=== PATIENT | male | born 1990 | race Caucasian/White ===

== ENCOUNTER 2016-12-26 02:09 | Emergency (ER) | payer SELFPAY ==
[~2016-12-26] VITALS: Ht 177.8 cm; Wt 66.2 kg
[2016-12-26 02:44] LABS: BILIRUBIN,URINE SMALL (NEG); GLUCOSE,URINE NEGATIVE (NEG); NITRITE,URINE NEGATIVE (NEG); PH,URINE 5.5; PROTEIN,URINE NEGATIVE (NEG-TRACE)
[2016-12-26 02:50] LABS: BARBITURATES NEG (NEG); BENZODIAZEPINES NEG (NEG); CANNABINOIDS NEG (NEG); COCAINE NEG (NEG); METHADONE NEG (NEG); OPIATES NEG (NEG); PHENCYCLIDINE NEG (NEG)
[2016-12-26 03:07] LABS: ETHANOL, URINE NEG (NEG)
[2016-12-26 03:22] LABS: CALCIUM 9.6 mg/dL (8.5-10.1); CREATININE 1.4 mg/dL (0.7-1.3); GFR 61.3; POTASSIUM 3.6 mmol/L (3.5-5.1)
[2016-12-26 03:23] LABS: BASO % 1 % (0-3); EOS % 4 % (0-3); HEMATOCRIT 46.7 % (39.0-53.0); HEMOGLOBIN 15.7 g/dL (13.0-17.5); LYMPH # 2.3 x10^3/uL (1.0-4.8); LYMPH % 34 % (24-48); MEAN CORPUSCULAR HEMOGLOBIN 31 pg (25-35); MEAN CORPUSCULAR HGB CONC 34 g/dL (31-37); MEAN CORPUSCULAR VOLUME 93 fL (79-100); MONO % 9 % (0-9); NEUT % 53 % (31-73); PLATELET COUNT 229 x10^3/uL (140-400); RED BLOOD COUNT 5.02 x10^6/uL (4.30-5.70); RED CELL DISTRIBUTION WIDTH 13.6 % (11.5-14.5); WHITE BLOOD COUNT 6.8 x10^3/uL (4.0-11.0)
--- NOTE | 2016-12-26 03:37 | ED.ADGEN ---
Past Medical History Past Medical History: Anxiety Past Surgical History: Other Additional Past Surgical Histo: METAL PLATE IN RIGHT FOREARM, EYE SX Alcohol Use: None Drug Use: None Adult General Chief Complaint Chief Complaint: PSYCH EVALUATION HPI HPI Patient is a 26 year old man, history of anxiety, history of suicidal ideation , who presents to the emergency department with his parents with report of suicidal ideation. Per patient report, he is experiencing a lot of stress, and is thinking of hanging himself. States he is still feeling depressed, but is not actively suicidal at this moment. He denies any self injures behaviors or ingestions prior to arrival in the ED. Has not previously been hospitalized for suicidal ideation, although he is considered hanging himself previously. No auditory or visual hallucinations. No drugs or alcohol. Patient has history of multiple head contusions, with a 15 year history of skateboarding. Review of Systems Review of Systems Constitutional: Denies fever or chills. [] Eyes: Denies change in visual acuity. [] HENT: Denies nasal congestion or sore throat. [] Respiratory: Denies cough or shortness of breath. [] Cardiovascular: Denies chest pain or edema. [] GI: Denies abdominal pain, nausea, vomiting, bloody stools or diarrhea. [] : Denies dysuria. [] Musculoskeletal: Denies back pain or joint pain. [] Integument: Denies rash. [] Neurologic: Denies headache, focal weakness or sensory changes. [] Endocrine: Denies polyuria or polydipsia. [] Lymphatic: Denies swollen glands. [] Psychiatric: Depression and anxiety with suicidal ideation. Current Medications Current Medications Current Medications Medications (Trade) Dose Ordered Sig/Paul Start Time Stop Time Status Last Admin Dose Admin Diphenhydramine HCl (Benadryl) 25 mg 1X ONCE 12/26/16 05:15 12/26/16 05:16 DC 12/26/16 05:12 25 MG Naproxen (Naprosyn) 250 mg 1X ONCE 12/26/16 05:00 12/26/16 05:00 DC Prochlorperazine Edisylate (Compazine) 10 mg 1X ONCE 12/26/16 05:15 12/26/16 05:16 DC 12/26/16 05:13 10 MG Sodium Chloride (Iv Sodium Chloride 0.9% 1000ml Bag) 1,000 ml @ 1,000 mls/hr 1X ONCE 12/26/16 04:30 12/26/16 05:29 DC 12/26/16 04:30 1,000 MLS/HR Tramadol HCl (Ultram) 50 mg 1X ONCE 12/26/16 05:15 12/26/16 05:16 DC 12/26/16 05:13 50 MG Allergies Allergies Allergies Coded Allergies Type Severity Reaction Last Updated Verified No Known Drug Allergies 12/26/16 No Physical Exam Physical Exam Constitutional: Well developed, well nourished, no acute distress, non-toxic appearance. [] HENT: Normocephalic, atraumatic, bilateral external ears normal, oropharynx moist, no oral exudates, nose normal. [] Eyes: PERRLA, EOMI, conjunctiva normal, no discharge. [] Neck: Normal range of motion, no tenderness, supple, no stridor. [] Cardiovascular:Heart rate regular rhythm, no murmur , S1, S2, rubs or gallops. [ ] Lungs & Thorax: Bilateral breath sounds clear to auscultation, no wheezing, rhonchi, rales. No chest or crepitus or tenderness. [] Abdomen: Bowel sounds normal, soft, no tenderness, no masses, no pulsatile masses. [] Skin: Warm, dry, no erythema, no rash. [] Back: No tenderness, no CVA tenderness. [] Extremities: No tenderness, no cyanosis, no clubbing, ROM intact, no edema. [] Neurologic: Alert and oriented X 3, normal motor function, normal sensory function, no focal deficits noted. [] Psychologic: Affect normal, judgement normal, mood normal. [] Current Patient Data Vital Signs Vital Signs Date Time Temp Pulse Resp B/P Pulse Ox O2 Delivery O2 Flow Rate FiO2 12/26/16 05:36 51 103/55 12/26/16 05:06 98 Room Air 12/26/16 02:25 97.9 16 97.9 Lab Values Laboratory Tests Test 12/26/16 02:30 12/26/16 02:58 Urine Collection Type Unknown Urine Color Alondra Urine Clarity Clear Urine pH 5.5 Urine Specific [place] >=1.030 Urine Protein Negativemg/dL (NEG-TRACE) Urine Glucose (UA) Negativemg/dL (NEG) Urine Ketones (Stick) 15mg/dL (NEG) Urine Blood Negative (NEG) Urine Nitrite Negative (NEG) Urine Bilirubin Small (NEG) Urine Urobilinogen Dipstick 1.0mg/dL (0.2 mg/dL) Urine Leukocyte Esterase Negative (NEG) Urine RBC 0/HPF (0-2) Urine WBC 1-4/HPF (0-4) Urine Squamous Epithelial Cells Few/LPF Urine Bacteria 0/HPF (0-FEW) Urine Mucus Mod/LPF Urine Opiates Screen Neg (NEG) Urine Methadone Screen Neg (NEG) Urine Barbiturates Neg (NEG) Urine Phencyclidine Screen Neg (NEG) Urine Amphetamine/Methamphetamine Neg (NEG) Urine Benzodiazepines Screen Neg (NEG) Urine Cocaine Screen Neg (NEG) Urine Cannabinoids Screen Neg (NEG) Urine Ethyl Alcohol Neg (NEG) White Blood Count 6.8x10^3/uL (4.0-11.0) Red Blood Count 5.02x10^6/uL (4.30-5.70) Hemoglobin 15.7g/dL (13.0-17.5) Hematocrit 46.7% (39.0-53.0) Mean Corpuscular Volume 93fL (79-100) Mean Corpuscular Hemoglobin 31pg (25-35) Mean Corpuscular Hemoglobin Concent 34g/dL (31-37) Red Cell Distribution Width 13.6% (11.5-14.5) Platelet Count 229x10^3/uL (140-400) Neutrophils (%) (Auto) 53% (31-73) Lymphocytes (%) (Auto) 34% (24-48) Monocytes (%) (Auto) 9% (0-9) Eosinophils (%) (Auto) 4% (0-3) H Basophils (%) (Auto) 1% (0-3) Neutrophils # (Auto) 3.6x10^3uL (1.8-7.7) Lymphocytes # (Auto) 2.3x10^3/uL (1.0-4.8) Monocytes # (Auto) 0.6x10^3/uL (0.0-1.1) Eosinophils # (Auto) 0.3x10^3/uL (0.0-0.7) Basophils # (Auto) 0.0x10^3/uL (0.0-0.2) Sodium Level 145mmol/L (136-145) Potassium Level 3.6mmol/L (3.5-5.1) Chloride Level 105mmol/L (98-107) Carbon Dioxide Level 29mmol/L (21-32) Anion Gap 11 (6-14) Blood Urea Nitrogen 17mg/dL (8-26) Creatinine 1.4mg/dL (0.7-1.3) H Estimated GFR (Cockcroft-Gault) 61.3 Glucose Level 104mg/dL (70-99) H Calcium Level 9.6mg/dL (8.5-10.1) Salicylates Level < 2.8mg/dL (2.8-20.0) L Salicylate Last Dose Date Unknown Salicylate Last Dose Time Unknown Acetaminophen Level < 2mcg/ml (10-30) L Acetaminophen Last Dose Date Unknown Acetaminophen Last Dose Time Unknown Laboratory Tests 12/26/16 02:58 Laboratory Tests 12/26/16 02:58 EKG EKG ECG: Rhythm strip: Sinus rhythm, heart rate 73 bpm, no ectopy. As interpreted by me. [] Radiology/Procedures Radiology/Procedures Not indicated. [] Course & Med Decision Making Course & Med Decision Making Pertinent Labs and Imaging studies reviewed. (See chart for details) Medical examination is unremarkable aside from mild dehydration with trace ketones, and a creatinine of 1.4. Patient received IV fluids in the ED. Patient also is complaining of headache at this time, consistent with his previous episodes of migraine headache. Patient received tramadol, IV fluids as stated, Compazine and Benadryl in the ED. On reevaluation his headache is resolved and he is feeling much better. Patient was evaluated by the psychiatric assessment team in the emergency department. Patient is denying any active suicidal ideation at this time, states he previously was a by himself, but not presently. He states he does still feel depressed. After evaluation, both medical and psychiatric, patient is medically cleared, plan to discharge patient with parents with a safety contract, they will proceed directly to [facility] for the patient to have a psychiatric evaluation and treatment as needed performed. Patient and family at bedside voiced understanding and agreement. Patient discharged with his parents, with plan as stated above. Dragon Disclaimer Dragon Disclaimer This electronic medical record was generated, in whole or in part, using a voice recognition dictation system. Departure Impression: Primary Impression: Depression Additional Impression: Suicidal ideation Disposition: HOME, SELF-CARE Condition: IMPROVED Problem Qualifiers LAKESHIA MENJIVAR DO Dec 26, 2016 03:37
[2016-12-26 03:49] LABS: BACTERIA,URINE 0 /HPF (0-FEW); RBC,URINE 0 /HPF (0-2); SQUAMOUS EPITHELIAL CELL,UR FEW /LPF
[2016-12-26] MEDS ORDERED: IV NORMAL SALINE 1000ML BAG 1,000 ML IV ONE (04:30)
[2016-12-26] MEDS ORDERED: NAPROXEN 250 MG TABLET PO ONE (05:00)
[2016-12-26] MEDS ORDERED: DIPHENHYDRAMINE 50 MG/ML VIAL IVP ONE (05:15)
[2016-12-26] MEDS ORDERED: TRAMADOL 50 MG TABLET. PO ONE (05:15)
[2016-12-26] MEDS ORDERED: PROCHLORPERAZINE 10 MG/2 ML VIAL. IV ONE (05:15)
[2016-12-26 05:36] VITALS: BP 103/55
== END 2016-12-26 06:00 | disposition home or self-care (01) ==
LOC: ER 02:09
DX: R45.851 Suicidal ideations (principal); F32.9 Major depressive disorder, single episode, unspecified
CPT/HCPCS: 36415; 80048; 81001; 85027; 96361; 96374; 96375; 99284; G0481; G6038; J0780; J1200; J7030; 80196

== ENCOUNTER 2017-11-20 18:14 | Emergency (ER) | payer SELFPAY, OTHER ==
[2017-11-20] MEDS: HYDROcodon/APAP 7.5/325MG ORAL 15 ML SOLUTION PO ×2 (19:16)
== END 2017-11-20 19:59 | disposition home or self-care (01) ==
LOC: ER 18:14
DX: S93.401A Sprain of unspecified ligament of right ankle, initial encounter (principal); J45.909 Unspecified asthma, uncomplicated; X58.XXXA Exposure to other specified factors, initial encounter; Y93.51 Activity, roller skating (inline) and skateboarding; Y92.89 Other specified places as the place of occurrence of the external cause; Y99.8 Other external cause status
CPT/HCPCS: 29515; 73610; 99284-25

== ENCOUNTER 2018-03-28 19:58 | Emergency (ER) | payer SELFPAY | END 2018-03-28 21:55 | disposition home or self-care (01) | LOC: ER 19:58 | DX: T63.301A Toxic effect of unspecified spider venom, accidental (unintentional), initial encounter (principal); J45.909 Unspecified asthma, uncomplicated; Y92.89 Other specified places as the place of occurrence of the external cause | CPT/HCPCS: 99281 ==

== ENCOUNTER 2019-09-08 18:56 | Emergency (ER) | payer SELFPAY ==
[~2019-09-08] VITALS: Ht 180.3 cm; Wt 70.3 kg
[~2019-09-08 18:56] MED LIST: ONDA4TAB10 SL
[2019-09-08] MEDS ORDERED: IV NORMAL SALINE 1000ML BAG 1,000 ML IV SCH (19:18)
--- NOTE | 2019-09-08 19:22 | PHYS DOC ---
Past Medical History Past Medical History: No Pertinent History, Asthma Past Surgical History: Other Additional Past Surgical Histo: titanium plate in right FA, bilat eye surgery "lazy eye" Alcohol Use: None Drug Use: None Adult General Chief Complaint Chief Complaint: NAUSEA/VOMITING/DIARRHA HPI HPI 29-year-old male presents to the emergency Department complaints of diarrhea, vomiting, abdominal discomfort, lightheadedness. Patient states this started around 6:30 this morning he states he's had approximately 4 or more episodes. Given the flank pain abdominal discomfort presented ER for further evaluation. Patient is afebrile 99 7, blood pressure 102/65, heart rate 96. Nothing makes symptoms worse nothing makes his symptoms better. Patient has taken no over the counter medications Review of Systems Review of Systems Constitutional: chills Eyes: Denies change in visual acuity, redness, or eye pain [] HENT: Denies nasal congestion or sore throat [] Respiratory: Denies cough or shortness of breath [] Cardiovascular: No additional information not addressed in HPI [] GI: + abdominal pain, nausea, vomiting, diarrhea [] : Denies dysuria or hematuria [] Musculoskeletal: Denies back pain or joint pain [] Integument: Denies rash or skin lesions [] Neurologic: Denies headache, focal weakness or sensory changes [] All other systems were reviewed and found to be within normal limits, except as documented in this note. Current Medications Current Medications Current Medications Medications (Trade) Dose Ordered Sig/Paul Start Time Stop Time Status Last Admin Dose Admin Dicyclomine HCl (Bentyl) 10 mg 1X ONCE 09/08/19 19:30 09/08/19 19:31 DC 09/08/19 19:44 10 MG Ondansetron HCl (Zofran) 4 mg 1X ONCE 09/08/19 19:30 09/08/19 19:31 DC 09/08/19 19:44 4 MG Sodium Chloride 1,000 ml @ 1,000 mls/hr Q1H 09/08/19 19:18 09/08/19 20:17 DC 09/08/19 19:42 1,000 MLS/HR Allergies Allergies Allergies Coded Allergies Type Severity Reaction Last Updated Verified ketorolac Adverse Reaction Mild Anxiety 09/08/19 Yes Physical Exam Physical Exam Constitutional: Well developed, well nourished, no acute distress, non-toxic appearance. [] HENT: Normocephalic, atraumatic, bilateral external ears normal, oropharynx m oist, no oral exudates, nose normal. [] Eyes: PERRLA, EOMI, conjunctiva normal, no discharge. [] Cardiovascular:Heart rate regular rhythm, no murmur [] Lungs & Thorax: Bilateral breath sounds clear to auscultation [] Abdomen: Bowel sounds normal, soft, no tenderness, no masses, no pulsatile masses. [] Skin: Warm, dry, no erythema, no rash. [] Back: No tenderness, no CVA tenderness. [] Extremities: No tenderness, no edema. [] Neurologic: Alert and oriented X 3, no focal deficits noted. [] Psychologic: Affect normal, judgement normal, mood normal. [] Current Patient Data Vital Signs Vital Signs Date Time Temp Pulse Resp B/P (MAP) Pulse Ox O2 Delivery O2 Flow Rate FiO2 09/08/19 19:00 99.7 92 20 102/65 (77) Room Air 99.7 Lab Values Laboratory Tests Test 09/08/19 19:40 09/08/19 20:08 White Blood Count 8.7 x10^3/uL (4.0-11.0) Red Blood Count 5.18 x10^6/uL (4.30-5.70) Hemoglobin 16.2 g/dL (13.0-17.5) Hematocrit 47.6 % (39.0-53.0) Mean Corpuscular Volume 92 fL (79-100) Mean Corpuscular Hemoglobin 31 pg (25-35) Mean Corpuscular Hemoglobin Concent 34 g/dL (31-37) Red Cell Distribution Width 13.2 % (11.5-14.5) Platelet Count 247 x10^3/uL (140-400) Neutrophils (%) (Auto) 88 % (31-73) H Lymphocytes (%) (Auto) 5 % (24-48) L Monocytes (%) (Auto) 6 % (0-9) Eosinophils (%) (Auto) 2 % (0-3) Basophils (%) (Auto) 0 % (0-3) Neutrophils # (Auto) 7.6 x10^3/uL (1.8-7.7) Lymphocytes # (Auto) 0.4 x10^3/uL (1.0-4.8) L Monocytes # (Auto) 0.5 x10^3/uL (0.0-1.1) Eosinophils # (Auto) 0.1 x10^3/uL (0.0-0.7) Basophils # (Auto) 0.0 x10^3/uL (0.0-0.2) Segmented Neutrophils % 84 % (35-66) H Band Neutrophils % 3 % (0-9) Lymphocytes % 11 % (24-48) L Monocytes % 2 % (0-10) Toxic Granulation Slight Platelet Estimate Adequate (ADEQUATE) Sodium Level 140 mmol/L (136-145) Potassium Level 3.8 mmol/L (3.5-5.1) Chloride Level 100 mmol/L (98-107) Carbon Dioxide Level 24 mmol/L (21-32) Anion Gap 16 (6-14) H Blood Urea Nitrogen 15 mg/dL (8-26) Creatinine 1.5 mg/dL (0.7-1.3) H Estimated GFR (Cockcroft-Gault) 55.3 BUN/Creatinine Ratio 10 (6-20) Glucose Level 113 mg/dL (70-99) H Calcium Level 9.4 mg/dL (8.5-10.1) Total Bilirubin 0.6 mg/dL (0.2-1.0) Aspartate Amino Transferase (AST) 18 U/L (15-37) Alanine Aminotransferase (ALT) 27 U/L (16-63) Alkaline Phosphatase 62 U/L (46-116) Total Protein 7.5 g/dL (6.4-8.2) Albumin 4.1 g/dL (3.4-5.0) Albumin/Globulin Ratio 1.2 (1.0-1.7) Urine Collection Type Clean catch Urine Color Yellow Urine Clarity Clear Urine pH 6.0 Urine Specific [place] >=1.030 Urine Protein Negative mg/dL (NEG-TRACE) Urine Glucose (UA) Negative mg/dL (NEG) Urine Ketones (Stick) Trace mg/dL (NEG) Urine Blood Negative (NEG) Urine Nitrite Negative (NEG) Urine Bilirubin Negative (NEG) Urine Urobilinogen Dipstick 0.2 mg/dL (0.2 mg/dL) Urine Leukocyte Esterase Negative (NEG) Urine RBC Occ /HPF (0-2) Urine WBC 1-4 /HPF (0-4) Urine Squamous Epithelial Cells Few /LPF Urine Bacteria Few /HPF (0-FEW) Urine Mucus Marked /LPF Laboratory Tests 09/08/19 19:40 Laboratory Tests 09/08/19 19:40 EKG EKG [] Radiology/Procedures Radiology/Procedures [] Course & Med Decision Making Course & Med Decision Making Pertinent Labs and Imaging studies reviewed. (See chart for details) []29-year-old male presents to the emergency Department complaints of diarrhea, vomiting, abdominal discomfort, lightheadedness. Patient states this started around 6:30 this morning he states he's had approximately 4 or more episodes. Given the flank pain abdominal discomfort presented ER for further evaluation. Patient is afebrile 99 7, blood pressure 102/65, heart rate 96. Nothing makes symptoms worse nothing makes his symptoms better. Patient has taken no over the counter medications Labs reviewed, mild elevation of creat bentyl/Zofran/ IVF x 2 liters No plans for imaging given nonspecific pain and normal labs Discussed findings with patient at bedside Plan for dc home Dragon Disclaimer Dragon Disclaimer This electronic medical record was generated, in whole or in part, using a voice recognition dictation system. Departure Departure Impression: Primary Impression: Nausea & vomiting Disposition: 01 HOME, SELF-CARE Condition: IMPROVED Referrals: KRISTAN ZELAYA (PCP) Patient Instructions: Nausea and Vomiting, [id number] Additional Instructions: Recommend follow up with PCP 3 - 5 days Return to the ER with worsening symptoms, intractable pain, fever, altered mental status Tylenol/Motrin as needed for pain Take new medications as directed Scripts Ondansetron Hcl (ZOFRAN) 4 Mg Tablet 1 TAB PO PRN Q6-8HRS for nausea, #12 TAB Prov: TESSY OVALLES MD 09/08/19 Problem Qualifiers Primary Impression: Nausea & vomiting Vomiting type: unspecified Vomiting Intractability: non-intractable Qualified Codes: R11.2 - Nausea with vomiting, unspecified TESSY OVALLES MD Sep 08, 2019 19:22
[2019-09-08] MEDS ORDERED: DICYCLOMINE 20 MG/2 ML AMPUL. IM ONE (19:30)
[2019-09-08] MEDS ORDERED: ONDANSETRON PF 4 MG/2 ML VIAL. IV ONE (19:30)
[2019-09-08 19:56] LABS: BASO % 0 % (0-3); EOS # 0.1 x10^3/uL (0.0-0.7); EOS % 2 % (0-3); HEMATOCRIT 47.6 % (39.0-53.0); HEMOGLOBIN 16.2 g/dL (13.0-17.5); LYMPH # 0.4 x10^3/uL (1.0-4.8); LYMPH % 5 % (24-48); MEAN CORPUSCULAR HEMOGLOBIN 31 pg (25-35); MEAN CORPUSCULAR HGB CONC 34 g/dL (31-37); MEAN CORPUSCULAR VOLUME 92 fL (79-100); MONO # 0.5 x10^3/uL (0.0-1.1); MONO % 6 % (0-9); NEUT # 7.6 x10^3/uL (1.8-7.7); NEUT % 88 % (31-73); PLATELET COUNT 247 x10^3/uL (140-400); RED BLOOD COUNT 5.18 x10^6/uL (4.30-5.70); RED CELL DISTRIBUTION WIDTH 13.2 % (11.5-14.5); WHITE BLOOD COUNT 8.7 x10^3/uL (4.0-11.0)
[2019-09-08 20:07] LABS: CALCIUM 9.4 mg/dL (8.5-10.1); CREATININE 1.5 mg/dL (0.7-1.3); GFR 55.3; POTASSIUM 3.8 mmol/L (3.5-5.1)
[2019-09-08 20:12] LABS: % BANDS 3 % (0-9); % LYMPHS 11 % (24-48); % MONOS 2 % (0-10); % SEGS 84 % (35-66)
[2019-09-08 20:14] LABS: ALBUMIN 4.1 g/dL (3.4-5.0); ALBUMIN/GLOBULIN RATIO 1.2 (1.0-1.7); PLT ESTIMATE ADEQUATE (ADEQUATE); TOTAL BILIRUBIN 0.6 mg/dL (0.2-1.0); TOTAL PROTEIN 7.5 g/dL (6.4-8.2); TOXIC GRANULATION SLIGHT
[2019-09-08 20:23] LABS: BILIRUBIN,URINE NEGATIVE (NEG); CLARITY,URINE CLEAR; COLOR,URINE YELLOW; NITRITE,URINE NEGATIVE (NEG); PROTEIN,URINE NEGATIVE (NEG-TRACE); UROBILINOGEN,URINE 0.2 mg/dL (0.2 mg/dL)
[2019-09-08 20:29] LABS: BACTERIA,URINE FEW /HPF (0-FEW); RBC,URINE OCC /HPF (0-2); SQUAMOUS EPITHELIAL CELL,UR FEW /LPF
[2019-09-08] MEDS ORDERED: ONDA4TAB7 PO (21:23)
[2019-09-08] MEDS ORDERED: IV NORMAL SALINE 1000ML BAG 1,000 ML IV ONE (21:30)
[2019-09-08 22:00] VITALS: BP 98/57
== END 2019-09-08 22:06 | disposition home or self-care (01) ==
LOC: ER 18:56
DX: R11.2 Nausea with vomiting, unspecified (principal); R19.7 Diarrhea, unspecified; R42 Dizziness and giddiness; J45.909 Unspecified asthma, uncomplicated; Z88.8 Allergy status to other drugs, medicaments and biological substances
CPT/HCPCS: 36415; 80053; 81001; 85007; 85025; 96361; 96372; 96374; 99284; J0500; J2405; J7030; 99285-25

== ENCOUNTER 2019-10-02 02:39 | Emergency (ER) | payer SELFPAY ==
[~2019-10-02] VITALS: Ht 177.8 cm; Wt 68.0 kg
[~2019-10-02 02:39] MED LIST changes: +ONDA4TAB7 PO
[2019-10-02 02:44] VITALS: BP 113/53
[2019-10-02 03:05] LABS: BASO % 1 % (0-3); EOS # 0.1 x10^3/uL (0.0-0.7); EOS % 1 % (0-3); HEMATOCRIT 46.1 % (39.0-53.0); HEMOGLOBIN 15.8 g/dL (13.0-17.5); LYMPH # 0.3 x10^3/uL (1.0-4.8); LYMPH % 5 % (24-48); MEAN CORPUSCULAR HEMOGLOBIN 31 pg (25-35); MEAN CORPUSCULAR HGB CONC 34 g/dL (31-37); MEAN CORPUSCULAR VOLUME 92 fL (79-100); MONO # 0.9 x10^3/uL (0.0-1.1); MONO % 14 % (0-9); NEUT % 79 % (31-73); PLATELET COUNT 219 x10^3/uL (140-400); RED BLOOD COUNT 5.03 x10^6/uL (4.30-5.70); RED CELL DISTRIBUTION WIDTH 13.4 % (11.5-14.5); WHITE BLOOD COUNT 6.4 x10^3/uL (4.0-11.0)
[2019-10-02 03:14] LABS: CALCIUM 9.7 mg/dL (8.5-10.1); CREATININE 1.3 mg/dL (0.7-1.3); GFR 65.3; POTASSIUM 3.3 mmol/L (3.5-5.1)
[2019-10-02 03:21] LABS: ALBUMIN 4.7 g/dL (3.4-5.0); ALBUMIN/GLOBULIN RATIO 1.3 (1.0-1.7); TOTAL BILIRUBIN 0.4 mg/dL (0.2-1.0); TOTAL PROTEIN 8.4 g/dL (6.4-8.2)
[2019-10-02 03:23] LABS: INFLUENZA A PATIENT POSITIVE (NEGATIVE); INFLUENZA B PATIENT NEGATIVE (NEGATIVE)
[2019-10-02 03:28] LABS: % BANDS 2 % (0-9); % EOS 1 % (0-5); % LYMPHS 10 % (24-48); % MONOS 14 % (0-10); % SEGS 73 % (35-66); PLT ESTIMATE ADEQUATE (ADEQUATE)
[2019-10-02] MEDS ORDERED: KETOROLAC 30 MG/ML VIAL. IVP ONE (03:30)
[2019-10-02] MEDS ORDERED: ONDANSETRON PF 4 MG/2 ML VIAL. IVP ONE (03:30)
[2019-10-02] MEDS ORDERED: IV NORMAL SALINE 1000ML BAG 1,000 ML IV ONE (03:30)
[2019-10-02] MEDS ORDERED: MORPHINE SULFATE 4 MG/ML VIAL. IV ONE ×2 (03:30)
[2019-10-02] MEDS ORDERED: TRAM50TA PO (03:40)
[2019-10-02] MEDS ORDERED: ONDA4TAB7 PO (03:40)
--- NOTE | 2019-10-02 03:41 | PHYS DOC ---
Past Medical History Past Medical History: Anxiety, Asthma, Migraines Past Surgical History: Other Additional Past Surgical Histo: titanium plate in right FA, bilat eye surgery "lazy eye" Alcohol Use: Rarely Drug Use: None Adult General Chief Complaint Chief Complaint: FLU SYMPTOM HPI HPI Patient is a 29 year old with history of anxiety, asthma presents with fevers chills, body aches, generalized malaise, multiple episodes of nausea vomiting starting approximately 12 hours prior to ED arrival. Recent influenza exposure. No chest pain palpitations, shortness of breath or wheezing. No other acute symptoms or complaints. No medications or therapy sticking prior to ED arrival. [] Review of Systems Review of Systems ROS as per HPI. All other ROS are negative. All other systems were reviewed and found to be within normal limits, except as documented in this note. Current Medications Current Medications Current Medications Medications (Trade) Dose Ordered Sig/Paul Start Time Stop Time Status Last Admin Dose Admin Ketorolac Tromethamine (Toradol 30mg Vial) 30 mg 1X ONCE 10/02/19 03:30 10/02/19 03:31 DC 10/02/19 03:18 30 MG Morphine Sulfate (Morphine Sulfate) 4 mg 1X ONCE 10/02/19 03:30 10/02/19 03:31 Cancel Ondansetron HCl (Zofran) 4 mg 1X ONCE 10/02/19 03:30 10/02/19 03:31 DC 10/02/19 03:19 4 MG Sodium Chloride 1,000 ml @ 1,000 mls/hr 1X ONCE 10/02/19 03:30 10/02/19 04:29 10/02/19 03:16 1,000 MLS/HR Allergies Allergies Allergies Coded Allergies Type Severity Reaction Last Updated Verified ketorolac Adverse Reaction Mild Anxiety 09/08/19 Yes Physical Exam Physical Exam Constitutional: Well developed, well nourished, uncomfortable appearing. [] HENT: Normocephalic, atraumatic, bilateral external ears normal, oropharynx moist, nose normal. [] Eyes: PERRLA, EOMI, conjunctiva normal, no discharge. [] Neck: Normal range of motion, no tenderness, supple, no stridor. [] Cardiovascular:Heart rate regular rhythm, no murmur [] Lungs & Thorax: Bilateral breath sounds clear to auscultation [] Abdomen: Bowel sounds normal, soft,nontender. [] Skin: Warm, dry, no erythema, no rash. [] Back: No tenderness, no CVA tenderness. [] Extremities: No tenderness, no cyanosis, no clubbing, ROM intact, no edema. [] Neurologic: Alert and oriented X 3, normal motor function, normal sensory function, no focal deficits noted. [] Psychologic: Affect normal, judgement normal, mood normal. [] Current Patient Data Vital Signs Vital Signs Date Time Temp Pulse Resp B/P (MAP) Pulse Ox O2 Delivery O2 Flow Rate FiO2 10/02/19 03:19 16 99 Room Air 10/02/19 02:44 98.0 80 113/53 (73) 98.0 Lab Values Laboratory Tests Test 10/02/19 02:48 10/02/19 02:53 Influenza Type A Antigen Positive (NEGATIVE) Influenza Type B Antigen Negative (NEGATIVE) White Blood Count 6.4 x10^3/uL (4.0-11.0) Red Blood Count 5.03 x10^6/uL (4.30-5.70) Hemoglobin 15.8 g/dL (13.0-17.5) Hematocrit 46.1 % (39.0-53.0) Mean Corpuscular Volume 92 fL (79-100) Mean Corpuscular Hemoglobin 31 pg (25-35) Mean Corpuscular Hemoglobin Concent 34 g/dL (31-37) Red Cell Distribution Width 13.4 % (11.5-14.5) Platelet Count 219 x10^3/uL (140-400) Neutrophils (%) (Auto) 79 % (31-73) H Lymphocytes (%) (Auto) 5 % (24-48) L Monocytes (%) (Auto) 14 % (0-9) H Eosinophils (%) (Auto) 1 % (0-3) Basophils (%) (Auto) 1 % (0-3) Neutrophils # (Auto) 5.0 x10^3/uL (1.8-7.7) Lymphocytes # (Auto) 0.3 x10^3/uL (1.0-4.8) L Monocytes # (Auto) 0.9 x10^3/uL (0.0-1.1) Eosinophils # (Auto) 0.1 x10^3/uL (0.0-0.7) Basophils # (Auto) 0.0 x10^3/uL (0.0-0.2) Segmented Neutrophils % 73 % (35-66) H Band Neutrophils % 2 % (0-9) Lymphocytes % 10 % (24-48) L Monocytes % 14 % (0-10) H Eosinophils % 1 % (0-5) Platelet Estimate Adequate (ADEQUATE) Sodium Level 139 mmol/L (136-145) Potassium Level 3.3 mmol/L (3.5-5.1) L Chloride Level 101 mmol/L (98-107) Carbon Dioxide Level 25 mmol/L (21-32) Anion Gap 13 (6-14) Blood Urea Nitrogen 9 mg/dL (8-26) Creatinine 1.3 mg/dL (0.7-1.3) Estimated GFR (Cockcroft-Gault) 65.3 BUN/Creatinine Ratio 7 (6-20) Glucose Level 122 mg/dL (70-99) H Calcium Level 9.7 mg/dL (8.5-10.1) Total Bilirubin 0.4 mg/dL (0.2-1.0) Aspartate Amino Transferase (AST) 17 U/L (15-37) Alanine Aminotransferase (ALT) 22 U/L (16-63) Alkaline Phosphatase 59 U/L (46-116) Total Protein 8.4 g/dL (6.4-8.2) H Albumin 4.7 g/dL (3.4-5.0) Albumin/Globulin Ratio 1.3 (1.0-1.7) Laboratory Tests 10/02/19 02:53 Laboratory Tests 10/02/19 02:53 EKG EKG [] Radiology/Procedures Radiology/Procedures [] Course & Med Decision Making Course & Med Decision Making Pertinent Labs and Imaging studies reviewed. (See chart for details) Plans or without respiratory compromise. [IV fluids, pain medications given. This is symptomatically improvement. Patient is once a positive. We'll treat supportively with total waiting and PCP follow-up as needed. Return precautions reviewed] Dragon Disclaimer Dragon Disclaimer This electronic medical record was generated, in whole or in part, using a voice recognition dictation system. Departure Departure Impression: Primary Impression: Influenza A Additional Impression: Nausea & vomiting Disposition: HOME, SELF-CARE Condition: IMPROVED Referrals: NO PCP (PCP) Patient Instructions: Haemophilus influenzae type b Conjugate Vaccine injection, Nausea and Vomiting, [id number] Additional Instructions: Please go home and rest. Take medications as directed and increase fluids. Drink liquids only for the next 12-24 hours and gradually rest to a bland diet as tolerated. Follow-up with PCP in 2-3 days for reevaluation. In the ED if new or worsening symptoms. Scripts Tramadol Hcl (TRAMADOL HCL) 50 Mg Tablet 50 MG PO Q6H PRN for PAIN for 3 Days, #15 TAB 0 Refills Prov: VITALIY BREWSTER DO 10/02/19 Ondansetron Hcl (ZOFRAN) 4 Mg Tablet 1 TAB PO Q6HRS, #10 TAB 0 Refills Prov: VITALIY BREWSTER DO 10/02/19 Problem Qualifiers VITALIY BREWSTER DO Oct 02, 2019 03:41
[2019-10-02] MEDS ORDERED: OSEL75CA PO ×2 (03:42→18:46)
[2019-10-02] MEDS ORDERED: PRED50TA PO (18:46)
== END 2019-10-02 03:50 ==
LOC: ER 02:39
DX: J10.1 Influenza due to other identified influenza virus with other respiratory manifestations (principal); R11.2 Nausea with vomiting, unspecified; R50.9 Fever, unspecified; R53.81 Other malaise; F41.9 Anxiety disorder, unspecified; J45.909 Unspecified asthma, uncomplicated; G43.909 Migraine, unspecified, not intractable, without status migrainosus; Z98.890 Other specified postprocedural states; Z88.6 Allergy status to analgesic agent
CPT/HCPCS: 36415; 80053; 85007; 85025; 87804; 96361; 96374; 96375; 99284; J1885; J2270; J2405; J7030

== ENCOUNTER 2019-10-02 16:49 | Emergency (ER) | payer SELFPAY ==
[~2019-10-02] VITALS: Ht 177.8 cm; Wt 68.0 kg
[~2019-10-02 16:49] MED LIST changes: +OSEL75CA PO; +TRAM50TA PO
[2019-10-02 17:30] VITALS: BP 103/66
[2019-10-02] MEDS ORDERED: OSELTAMIVIR 75 MG CAPSULE PO STA (18:19)
[2019-10-02] MEDS ORDERED: predniSONE 20 MG TABLET PO ONE (18:30)
--- NOTE | 2019-10-02 18:39 | PHYS DOC ---
Past Medical History Past Medical History: Anxiety, Asthma, Migraines (BLAYNE PAGE APRN) Past Surgical History: Other Additional Past Surgical Histo: titanium plate in right FA, bilat eye surgery "lazy eye" (BLAYNE PAGE APRN) Alcohol Use: Rarely Drug Use: None (BLAYEN PAGE APRN) Attending Signature I have participated in the care of this patient and I have reviewed and agree with all pertinent clinical information above including history, exam, and recom mendations. (TESSY OVALLES MD) Adult General Chief Complaint Chief Complaint: FLU SYMPTOM HPI HPI Patient is a 29 year old male who presents to the ED today complaining of flu symptoms including headache and body aches, symptoms began yesterday. Patient was seen earlier in the ED today and was diagnosed with influenza A. He was sent home with tramadol and Zofran. He states he still has the same symptoms. Denies any fever. (BLAYNE PAGE APRN) Review of Systems Review of Systems Constitutional: Reports body aches. Eyes: Denies change in visual acuity, redness, or eye pain [] HENT: Denies nasal congestion or sore throat [] Respiratory: Denies cough or shortness of breath [] Cardiovascular: No additional information not addressed in HPI [] GI: Denies abdominal pain, nausea, vomiting, bloody stools or diarrhea [] : Denies dysuria or hematuria [] Musculoskeletal: Denies back pain or joint pain [] Integument: Denies rash or skin lesions [] Neurologic: Reports headache, denies focal weakness or sensory changes [] All other systems were reviewed and found to be within normal limits, except as documented in this note. (BLAYNE PAGE APRN) Current Medications Current Medications Current Medications Medications (Trade) Dose Ordered Sig/Paul Start Time Stop Time Status Last Admin Dose Admin Oseltamivir Phosphate (Tamiflu) 75 mg 1X STAT 10/02/19 18:19 10/02/19 18:22 DC Prednisone (Prednisone) 60 mg 1X ONCE 10/02/19 18:30 10/02/19 18:31 DC (TESSY OVALLES MD) Allergies Allergies Allergies Coded Allergies Type Severity Reaction Last Updated Verified ketorolac Adverse Reaction Mild Anxiety 09/08/19 Yes (TESSY OVALLES MD) Physical Exam Physical Exam Constitutional: Well developed, well nourished, no acute distress, non-toxic appearance. [] HENT: Normocephalic, atraumatic, bilateral external ears normal, oropharynx moist, no oral exudates, nose normal. [] Eyes: PERRLA, EOMI, conjunctiva normal, no discharge. [] Neck: Normal range of motion, no tenderness, supple, no stridor. [] Cardiovascular:Heart rate regular rhythm, no murmur [] Lungs & Thorax: Bilateral breath sounds clear to auscultation [] Abdomen: Bowel sounds normal, soft, no tenderness, no masses, no pulsatile masses. [] Skin: Warm, dry, no erythema, no rash. [] Back: No tenderness, no CVA tenderness. [] Extremities: No tenderness, no cyanosis, no clubbing, ROM intact, no edema. [] Neurologic: Alert and oriented X 3, normal motor function, normal sensory function, no focal deficits noted. Cranial nerves II-XII intact Psychologic: Affect normal, judgement normal, mood normal. [] (BLAYNE PAGE APRN) Current Patient Data Vital Signs Vital Signs Date Time Temp Pulse Resp B/P (MAP) Pulse Ox O2 Delivery O2 Flow Rate FiO2 10/02/19 17:30 98.6 96 16 103/66 (78) 99 Room Air 98.6 (TESSY OVALLES MD) EKG EKG [] (BLAYNE PAGE APRN) Radiology/Procedures Radiology/Procedures [] (BLAYNE PAGE APRN) Course & Med Decision Making Course & Med Decision Making Pertinent Labs and Imaging studies reviewed. (See chart for details) This is a 29-year-old male patient presenting to the ED today for flulike symptoms. Patient was diagnosed with influenza A this morning. He states his symptoms are still present. Talked to patient on viral nature of Influenza and what to expect. Given Tamiflu RX and prednisone with F/u with PCP next week. (BLAYNE PAGE APRN) Dragon Disclaimer Dragon Disclaimer This electronic medical record was generated, in whole or in part, using a voice recognition dictation system. (BLAYNE PAGE APRN) Departure Departure Impression: Primary Impression: Influenza A Disposition: 01 HOME, SELF-CARE Condition: STABLE Referrals: NO PCP (PCP) follow up with your doctor next week Patient Instructions: Influenza A (H1N1) Additional Instructions: You have influenza A. This is a viral illness. Please take the prescribed medicines as ordered. Rest, push fluids. Take tylenol or motrin for fever or pain. Follow up with you doctor next week Scripts Oseltamivir Phosphate (TAMIFLU) 75 Mg Capsule 1 CAP PO BID, #9 CAP Prov: BLAYNE PAGE APRN 10/02/19 Prednisone (PREDNISONE) 50 Mg Tablet 1 TAB PO DAILY, #5 TAB Prov: BLAYNE PAGE APRN 10/02/19 BLAYNE PAGE APRN Oct 02, 2019 18:39 TESSY OVALLES MD Oct 02, 2019 18:48
[2019-10-02] MEDS ORDERED: OSEL75CA PO (18:46)
[2019-10-02] MEDS ORDERED: PRED50TA PO (18:46)
== END 2019-10-02 19:10 | disposition home or self-care (01) ==
LOC: ER 16:49
DX: J10.1 Influenza due to other identified influenza virus with other respiratory manifestations (principal); F41.9 Anxiety disorder, unspecified; J45.909 Unspecified asthma, uncomplicated; G43.909 Migraine, unspecified, not intractable, without status migrainosus; Z98.890 Other specified postprocedural states; Z88.6 Allergy status to analgesic agent
CPT/HCPCS: 99283; J7512

== ENCOUNTER 2020-03-19 20:29 | Emergency (ER) | payer SELFPAY ==
[~2020-03-19] VITALS: Ht 180.3 cm; Wt 68.2 kg
[~2020-03-19 20:29] MED LIST changes: +PRED50TA PO
[2020-03-19 21:13] LABS: BASO # 0.1 x10^3/uL (0.0-0.2); BASO % 1 % (0-3); EOS # 0.5 x10^3/uL (0.0-0.7); EOS % 5 % (0-3); HEMATOCRIT 45.7 % (39.0-53.0); HEMOGLOBIN 15.8 g/dL (13.0-17.5); LYMPH # 2.3 x10^3/uL (1.0-4.8); LYMPH % 25 % (24-48); MEAN CORPUSCULAR HEMOGLOBIN 32 pg (25-35); MEAN CORPUSCULAR HGB CONC 35 g/dL (31-37); MEAN CORPUSCULAR VOLUME 92 fL (79-100); MONO # 0.7 x10^3/uL (0.0-1.1); MONO % 7 % (0-9); NEUT # 5.6 x10^3/uL (1.8-7.7); NEUT % 62 % (31-73); PLATELET COUNT 255 x10^3/uL (140-400); RED BLOOD COUNT 4.95 x10^6/uL (4.30-5.70); RED CELL DISTRIBUTION WIDTH 13.7 % (11.5-14.5); WHITE BLOOD COUNT 9.1 x10^3/uL (4.0-11.0)
[2020-03-19] MEDS ORDERED: CETIRIZINE HCL 10 MG TABLET. PO SCH (21:14)
--- NOTE | 2020-03-19 21:21 | RAD ---
Exam: Chest one view INDICATION: Chest pain TECHNIQUE: Frontal view of the chest Comparisons: None FINDINGS: The cardiomediastinal silhouette and pulmonary vessels are within normal limits. The lung and pleural spaces are clear. IMPRESSION: No acute cardiopulmonary process. Electronically signed by: Brad Cunningham MD (03/19/2020 9:18 PM) [id number]
[2020-03-19 21:24] LABS: CALCIUM 9.1 mg/dL (8.5-10.1); CREATININE 1.4 mg/dL (0.7-1.3); GFR 59.5; POTASSIUM 3.6 mmol/L (3.5-5.1)
--- NOTE | 2020-03-19 21:24 | PHYS DOC ---
Past Medical History Past Medical History: Anxiety, Asthma, Migraines Past Surgical History: Other Additional Past Surgical Histo: titanium plate in right FA, bilat eye surgery "lazy eye" Smoking Status: Never Smoker Alcohol Use: Rarely Drug Use: None General Adult EDM: Chief Complaint: SHORTNESS OF BREATH HPI: HPI: 30 yo m PMH anxiety, asthma and migraines, presents to the ed with c/o bilateral upper chest tightness, wheezing, rhinorrhea, and nasal drainage x1day. 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 Sxs started shortly after moving the lawn. No known exposure to covid. H/o asthma, out of his albuterol. ROS: No associated fever, chills, dyspnea, hemoptysis, sore throat, dry cough, headache, neck pain, diaphoresis, rash, leg swelling, abdominal/back pain. Review of Systems: Review of Systems: Constitutional: Denies fever or chills. [] Eyes: Denies change in visual acuity. [] HENT: Denies nasal congestion or sore throat. [] Respiratory: Denies cough or shortness of breath. [] Cardiovascular: Denies chest pain or edema. [] GI: Denies abdominal pain, nausea, vomiting, bloody stools or diarrhea. [] : Denies dysuria. [] Musculoskeletal: Denies back pain or joint pain. [] Integument: Denies rash. [] Neurologic: Denies headache, focal weakness or sensory changes. [] Endocrine: Denies polyuria or polydipsia. [] Lymphatic: Denies swollen glands. [] Psychiatric: Denies depression or anxiety. [] Current Medications: Current Medications Medications (Trade) Dose Ordered Sig/Paul Start Time Stop Time Status Last Admin Dose Admin Cetirizine HCl (ZyrTEC) 10 mg DAILY 03/19/20 21:14 Allergies: Allergies: Allergies Coded Allergies Type Severity Reaction Last Updated Verified ketorolac Adverse Reaction Mild Anxiety 09/08/19 Yes Physical Exam: PE: Constitutional: Well developed, well nourished, no acute distress, non-toxic appearance. [] HENT: Normocephalic, atraumatic, bilateral external ears normal, oropharynx moist, no oral exudates, nose normal. [] Eyes: PERRLA, EOMI, conjunctiva normal, no discharge. [] Neck: Normal range of motion, no tenderness, supple, no stridor. [] Cardiovascular:Heart rate regular rhythm, no murmur [] Lungs & Thorax: Bilateral breath sounds equal, scant expiratory wheeze Abdomen: Bowel sounds normal, soft, no tenderness, no masses, no pulsatile masses. [] Skin: Warm, dry, no erythema, no rash. superficial scabbed abrasion over palm of left hand Back: No tenderness, no CVA tenderness. [] Extremities: No tenderness, no cyanosis, no clubbing, ROM intact, Neurologic: Alert and oriented X 3, normal motor function, normal sensory function, no focal deficits noted. [] Psychologic: Affect normal, judgement normal, mood normal. [] Current Patient Data: Labs: Laboratory Tests Test 03/19/20 21:06 White Blood Count 9.1 x10^3/uL (4.0-11.0) Red Blood Count 4.95 x10^6/uL (4.30-5.70) Hemoglobin 15.8 g/dL (13.0-17.5) Hematocrit 45.7 % (39.0-53.0) Mean Corpuscular Volume 92 fL (79-100) Mean Corpuscular Hemoglobin 32 pg (25-35) Mean Corpuscular Hemoglobin Concent 35 g/dL (31-37) Red Cell Distribution Width 13.7 % (11.5-14.5) Platelet Count 255 x10^3/uL (140-400) Neutrophils (%) (Auto) 62 % (31-73) Lymphocytes (%) (Auto) 25 % (24-48) Monocytes (%) (Auto) 7 % (0-9) Eosinophils (%) (Auto) 5 % (0-3) H Basophils (%) (Auto) 1 % (0-3) Neutrophils # (Auto) 5.6 x10^3/uL (1.8-7.7) Lymphocytes # (Auto) 2.3 x10^3/uL (1.0-4.8) Monocytes # (Auto) 0.7 x10^3/uL (0.0-1.1) Eosinophils # (Auto) 0.5 x10^3/uL (0.0-0.7) Basophils # (Auto) 0.1 x10^3/uL (0.0-0.2) Laboratory Tests 03/19/20 21:06 Vital Signs: Vital Signs Date Time Temp Pulse Resp B/P (MAP) Pulse Ox O2 Delivery O2 Flow Rate FiO2 03/19/20 20:35 97.6 81 16 126/65 (85) 98 Room Air 97.6 EKG: EKG: Normal sinus rhythm at 95 bpm, no axis deviation, QTC 443, no T wave inversions, no ST elevations or ST depressions Radiology/Procedures: Radiology/Procedures: IMAGING REPORT Signed PATIENT: EFRA SEQUEIRA LACCOUNT: [id number] : 1990 LOCATION: ER AGE: 30 SEX: M EXAM STATUS: REG ER ORD. PHYSICIAN: OLGA ROSAS DO REASON: cp PROCEDURE: PORTABLE CHEST 1V Exam: Chest one view INDICATION: Chest pain TECHNIQUE: Frontal view of the chest Comparisons: None FINDINGS: The cardiomediastinal silhouette and pulmonary vessels are within normal limits. The lung and pleural spaces are clear. IMPRESSION: No acute cardiopulmonary process. Electronically signed by: Brad Hendricks MD (03/19/2020 9:18 PM) [id number] DICTATED and SIGNED BY: BRAD HENDRICKS MD DATE: 03/19/202117 Impression: Concern for asthma vs seasonal allergies vs both. Pt nontoxic appearing. Advised pmd followup w/in 1 week. Strict return precautions for difficulties breathing/soa. All of pts' questions were answered and pt was stable at time of discharge. Course & Med Decision Making: Course & Med Decision Making Pertinent Labs and Imaging studies reviewed. (See chart for details) [] Dragon Disclaimer: Dragon Disclaimer: This electronic medical record was generated, in whole or in part, using a voice recognition dictation system. Departure Departure Impression: Primary Impression: Asthma Additional Impressions: Environmental allergies Seasonal allergies Disposition: 01 HOME, SELF-CARE Condition: STABLE Referrals: NO PCP (PCP) Patient Instructions: Allergies, Generic, Asthma Prevention-Brief Scripts Fluticasone Propionate (Flonase Allergy Relief) 9.9 Ml [place].susp 2 SPRAYS NS DAILY for 30 Days, #1 BOTTLE Prov: OLGA ROSAS DO 03/19/20 Loratadine (CLARITIN) 5 Mg Tab.rapdis 1 TAB PO DAILY for allergy symptoms for 30 Days, #30 TAB 0 Refills Prov: OLGA ROSAS DO 03/19/20 Albuterol Sulfate (VENTOLIN HFA INHALER) 18 Gm Hfa.aer.ad 2 PUFF INH QID for FOR ASTHMA, #1 INHALER 0 Refills Prov: OLGA ROSAS DO 03/19/20 Justicifation of Admission Dx: Justifications for Admission: Justification of Admission Dx: N/A OLGA ROSAS DO Mar 19, 2020 21:24
[2020-03-19 21:29] LABS: ALBUMIN 4.3 g/dL (3.4-5.0); ALBUMIN/GLOBULIN RATIO 1.3 (1.0-1.7); MAGNESIUM 1.7 mg/dL (1.8-2.4); TOTAL BILIRUBIN 0.8 mg/dL (0.2-1.0); TOTAL PROTEIN 7.6 g/dL (6.4-8.2)
[2020-03-19] MEDS ORDERED: IPRATRPIUM/ALBUTEROL 0.5/2.5MG 3 ML NEBU. NEB ONE (21:45)
[2020-03-19 22:16] VITALS: BP 125/75
[2020-03-19] MEDS ORDERED: LORA5TAB7 PO (23:09)
[2020-03-19] MEDS ORDERED: VENTOLIN HFA18 GM INH (23:09)
[2020-03-19] MEDS ORDERED: FLUT9.9S NS (23:09)
--- NOTE | 2020-03-20 07:34 | EKG ---
[facility] [address] [place] [address] Test Date: 2020-03-19 Test Time: 20:53:45 Pat Name: EFRA SEQUEIRA Department: Room: Gender: M Rebeamer: : 1990 Requested By: OLGA ROSAS Order Number: [id number] Reading MD: Boo Kamara Measurements Intervals [place] Rate: 95 P: 76 MS: 150 QRS: 59 QRSD: 96 T: 56 QT: 350 QTc: 443 Interpretive Statements SINUS RHYTHM LEFT ATRIAL ABNORMALITY S1,S2,S3 PATTERN INCOMPLETE RIGHT BUNDLE BRANCH BLOCK Electronically Signed On 03-21-2020 16:35:16 CDT by Boo Kamara
== END 2020-03-19 23:14 | disposition home or self-care (01) ==
LOC: ER 20:29
DX: J45.909 Unspecified asthma, uncomplicated (principal); G43.909 Migraine, unspecified, not intractable, without status migrainosus; Z88.6 Allergy status to analgesic agent
CPT/HCPCS: 36415; 71045; 80053; 83690; 83735; 84484; 85025; 93005; 94640; 99285

== ENCOUNTER 2020-07-27 08:43 | Emergency (ER) | payer SELFPAY ==
[~2020-07-27] VITALS: Ht 180.3 cm; Wt 70.4 kg
[~2020-07-27 08:43] MED LIST changes: +FLUT9.9S NS; +LORA5TAB7 PO; +VENTOLIN HFA18 GM INH
[2020-07-27 09:31] VITALS: BP 133/83
[2020-07-27] MEDS ORDERED: SUMAtriptan SUCC 6 MG/0.5 ML VIAL. SQ ONE (10:00)
[2020-07-27] MEDS ORDERED: SUMA100T4 PO (10:58)
--- NOTE | 2020-07-27 10:58 | ED.ADGEN ---
Past Medical History Past Medical History: No Pertinent History, Anxiety, Asthma, Migraines Past Surgical History: Other Additional Past Surgical Histo: titanium plate in right FA, bilat eye surgery "lazy eye" Smoking Status: Never Smoker Alcohol Use: Occasionally Drug Use: None General Adult EDM: Chief Complaint: ABSCESS HPI: HPI: Patient is a 30-year-old male who presents to the emergency room complaining of headaches. Patient states that it is due to a cyst on his head but he has not found anybody who is willing to help him get it out. He has been taking medication at home without relief. The area has not become swollen or inflamed. He is never had drainage from it. Review of Systems: Review of Systems: General: Denies fever, chills, sweats, fatigue Eyes: Denies drainage, blurred vision, eye redness HENT: Denies rhinorrhea, sore throat, earache Respiratory: Denies cough, shortness of breath, wheezing Cardiac: Denies edema, palpitations, chest pain GI: Denies abdominal pain, Nausea, vomiting MSK: Denies back pain, neck pain Skin: Denies rash, jaundice Neuro: Denies dizziness reports headache Psychiatric: Denies SI/HI Current Medications: Current Medications Medications (Trade) Dose Ordered Sig/Paul Start Time Stop Time Status Last Admin Dose Admin Sumatriptan Succinate (Imitrex) 6 mg 1X ONCE 07/27/20 10:00 07/27/20 10:01 DC 07/27/20 10:08 6 MG Allergies: Allergies: Allergies Coded Allergies Type Severity Reaction Last Updated Verified ketorolac Adverse Reaction Mild Anxiety 09/08/19 Yes Physical Exam: PE: General: Awake, alert, NAD. Well Nourished, well hydrated. Cooperative HEENT: Atraumatic, EOMI, PERRL, airway patent, moist oral mucosa Neck: Supple, trachea midline Respiratory: CTA bilaterally, normal effort, no wheezing/crackles CV: RRR, no murmur, cap refill <2 GI: Soft, nondistended, nontender, no masses MSK: No obvious deformities Skin: Warm, dry, abrasions to right knuckles with dried blood Neuro: A&O x3, speech NL, 5/5 strength in BUE/BLE distally and proximally, CN 2- 12 intact, cerebellar testing normal Psych: Normal affect, normal mood, not suicidal or homicidal Current Patient Data: Vital Signs: Vital Signs Date Time Temp Pulse Resp B/P (MAP) Pulse Ox O2 Delivery O2 Flow Rate FiO2 07/27/20 09:31 97.5 67 14 133/83 (100) 99 Room Air 97.5 EKG: EKG: [] Heart Score: Risk Factors: Risk Factors: DM, Current or recent (<one month) smoker, HTN, HLP, family history of CAD, obesity. Risk Scores: Score 0 - 3: 2.5% MACE over next 6 weeks - Discharge Home Score 4 - 6: 20.3% MACE over next 6 weeks - Admit for Clinical Observation Score 7 - 10: 72.7% MACE over next 6 weeks - Early Invasive Strategies Radiology/Procedures: Radiology/Procedures: [] Course & Med Decision Making: Course & Med Decision Making Pertinent Labs and Imaging studies reviewed. (See chart for details) Patient is a 30yo male who presents to the emergency room complaining of a migraine. Patient has a history of migraines and this is typical of her normal migraine. Patient did not have sudden onset of severe headache that would be concerning for subarachnoid hemorrhage. Patient does not have any neurologic deficits on exam. Patient will be given a migraine cocktail. On reevaluation, patient is feeling better. We will give him referral to a physician who can help him with his cyst. Patient's test results and vitals while in the ED were fully reviewed and discussed with the patient. Patient is stable and at this time does not need admission to the hospital. We have discussed strict return precautions and the importance of following up with their Primary Care Physician. Patient stated understanding and was given an opportunity to ask any questions. Patient is in agreement with plan. Dragon Disclaimer: Dragon Disclaimer: This electronic medical record was generated, in whole or in part, using a voice recognition dictation system. Departure Departure Impression: Primary Impression: Headache Disposition: 01 DC HOME SELF CARE/HOMELESS Condition: STABLE Referrals: NO PCP (PCP) HENRY AREVALO MD Patient Instructions: Epidermal Cyst, General Headache Without Cause Scripts Sumatriptan Succinate (SUMATRIPTAN SUCCINATE) 100 Mg Tablet 1 TAB PO UD, #9 TAB 1 Refill Prov: NANDO GAMEZ MD 07/27/20 NANDO GAMEZ MD Jul 27, 2020 10:58
== END 2020-07-27 11:15 | disposition home or self-care (01) ==
LOC: ER 08:43
DX: G43.909 Migraine, unspecified, not intractable, without status migrainosus (principal); F41.9 Anxiety disorder, unspecified; J45.909 Unspecified asthma, uncomplicated; Z98.890 Other specified postprocedural states; Z88.8 Allergy status to other drugs, medicaments and biological substances
CPT/HCPCS: 96372; 99283; J3030

== ENCOUNTER 2021-02-16 12:41 | Emergency (ER) | payer SELFPAY ==
[~2021-02-16] VITALS: Ht 180.3 cm; Wt 69.5 kg
[~2021-02-16 12:41] MED LIST changes: +SUMA100T4 PO
[2021-02-16 13:18] VITALS: BP 113/73
--- NOTE | 2021-02-16 13:57 | RAD ---
INDICATION: Reason: R knee pain after injury 1 month ago medial area aroung the knee cap / Spl. Instr uctions: / History: COMPARISON: None. IMPRESSION: Right knee: 3 views obtained. Prepatellar soft tissue swelling is identified. Small joint effusion. N o definite acute fracture or dislocation. Mild angulation at the proximal fibula posteriorly which co uld be from callus formation from prior fracture or small osseous excrescence. Electronically signed by: Sam Drew MD (02/16/2021 1:55 PM) [id number]
--- NOTE | 2021-02-16 14:13 | ED.ADGEN ---
Past Medical History Past Medical History: Anxiety, Asthma, Migraines, Other Additional Past Medical Histor: CHRONIC RIGHT KNEE PAIN R/T FALLS Past Surgical History: Other Additional Past Surgical Histo: titanium plate in right FA, bilat eye surgery "lazy eye" Smoking Status: Never Smoker Alcohol Use: Occasionally Drug Use: None General Adult EDM: Chief Complaint: KNEE INJURY HPI: HPI: Patient is a 31 year old male who presents to the emergency department with complaints of right knee pain for the last month. Patient states that he rides a skateboard and that 1 month ago he fell approximately 4 feet onto his knees while skating. He denies any joint laxity. He states it feels like there is pressure in his joint. He denies any numbness, tingling, weakness, or decreased range of motion. The patient currently rates his pain a 4-5 out of 10 on the pain scale, he denies any alleviating factors, the pain is worse with palpation and movement. Review of Systems: Review of Systems: Complete ROS is negative unless otherwise noted in HPI. Allergies: Allergies: Allergies Coded Allergies Type Severity Reaction Last Updated Verified ketorolac Adverse Reaction Mild Anxiety 09/08/19 Yes Physical Exam: PE: See Above Constitutional: Well developed, well nourished, no acute distress, non-toxic appearance. [] HENT: Normocephalic, atraumatic, bilateral external ears normal, nose normal. [] Eyes: PERRLA, EOMI, conjunctiva normal, no discharge. [] Neck: Normal range of motion, no stridor. [] Cardiovascular:Heart rate regular rhythm Lungs & Thorax: Respirations even and unlabored, no retractions, no respiratory distress Skin: Warm, dry, no erythema, no rash. [] Extremities: Right knee: Anterior tenderness to palpation 1+ edema, no crepitus, negative anterior/posterior drawer testing, negative stress test, no cyanosis, ROM intact, sensation intact Neurologic: Alert and oriented X 3, no focal deficits noted. [] Psychologic: Affect normal, judgement normal, mood normal. [] Current Patient Data: Vital Signs: Vital Signs Date Time Temp Pulse Resp B/P (MAP) Pulse Ox O2 Delivery O2 Flow Rate FiO2 02/16/21 13:18 98.2 72 16 113/73 (86) 98 Room Air 98.2 EKG: EKG: [] Heart Score: C/O Chest Pain: No Risk Scores: Score 0 - 3: 2.5% MACE over next 6 weeks - Discharge Home Score 4 - 6: 20.3% MACE over next 6 weeks - Admit for Clinical Observation Score 7 - 10: 72.7% MACE over next 6 weeks - Early Invasive Strategies Radiology/Procedures: Radiology/Procedures: PROCEDURE: KNEE RIGHT 3V INDICATION: Reason: R knee pain after injury 1 month ago medial area aroung the knee cap / Spl. Instructions: / History: COMPARISON: None. IMPRESSION: Right knee: 3 views obtained. Prepatellar soft tissue swelling is identified. Small joint effusion. No definite acute fracture or dislocation. Mild angulation at the proximal fibula posteriorly which could be from callus formation from prior fracture or small osseous excrescence. Electronically signed by: Sam Drew MD (02/16/2021 1:55 PM) [id number][] Course & Med Decision Making: Course & Med Decision Making Pertinent Labs and Imaging studies reviewed. (See chart for details) [id number] spoke with Dr. Sahu who also reviewed the patient's films, he does not appreciate mild angulation at the proximal fibula that was identified by the radiologist. I will prescribe the patient naproxen, and encouraged him to wear a compression knee sleeve and follow-up with his primary care doctor Dr. Sahu if symptoms persist. [] Dragon Disclaimer: Dragon Disclaimer: This electronic medical record was generated, in whole or in part, using a voice recognition dictation system. Departure Departure Impression: Primary Impression: Effusion, right knee Additional Impression: Right anterior knee pain Disposition: 01 HOME / SELF CARE / HOMELESS Condition: STABLE Referrals: ADOLFO ESPARZA MD (PCP) RODOLFO SAHU MD Patient Instructions: Knee Effusion, [id number], Knee Pain, [id number] Additional Instructions: Fill prescription(s) and use as directed. Recommend application of ice, elevation, and rest of affected extremity. I recommend wearing a compression knee sleeve for comfort. Follow-up with your primary care doctor Dr. Sahu if symptoms persist, return to the ER if your symptoms worsen. Scripts Naproxen (NAPROXEN) 500 Mg Tablet 1 TAB PO BID PRN for PAIN for 10 Days, #20 TAB 0 Refills Prov: SHANICE KRAFT APRN 02/16/21 Problem Qualifiers SHANICE KRAFT APRN February 16, 2021 14:12
[2021-02-16] MEDS ORDERED: NAPR-514 PO (14:23)
== END 2021-02-16 14:27 | disposition home or self-care (01) ==
LOC: ER 12:41
DX: M25.461 Effusion, right knee (principal); M25.561 Pain in right knee; G89.29 Other chronic pain; J45.909 Unspecified asthma, uncomplicated; G43.909 Migraine, unspecified, not intractable, without status migrainosus; Z88.6 Allergy status to analgesic agent
CPT/HCPCS: 73562; 99284

== ENCOUNTER 2021-04-06 11:15 | Emergency (ER) | payer SELFPAY ==
[~2021-04-06] VITALS: Ht 180.3 cm; Wt 68.1 kg
[~2021-04-06 11:15] MED LIST changes: +NAPR-514 PO
[2021-04-06 11:23] VITALS: BP 102/67
[2021-04-06] MEDS ORDERED: IV NORMAL SALINE 1000ML BAG 1,000 ML IV ONE (12:15)
[2021-04-06] MEDS ORDERED: diphenhydrAMINE HCL 25 MG CAPSULE PO ONE (12:15)
[2021-04-06] MEDS ORDERED: DEXAMETHASONE SOD PHOS 4 MG/ML VIAL IVP ONE (12:15)
[2021-04-06] MEDS ORDERED: PROCHLORPERAZINE 10 MG/2 ML VIAL. IV ONE (12:15)
--- NOTE | 2021-04-06 12:37 | RAD ---
CT HEAD WITHOUT CONTRAST 04/06/2021 12:18 PM Indication: Reason: severe headaches / Spl. Instructions: / History: Comparison: CT head without contrast August 05, 2017 Procedure: Multidetector CT imaging of the head was performed without the administration of contrast. Findings: There is no evidence of acute intracranial hemorrhage. There is no evidence of acute territ orial infarction. Please note that CT is limited for evaluation of acute ischemia. No mass effect or midline shift is identified . The ventricles and basilar cisterns have an appropriate appearance. No abnormal extra-axial fluid collections are seen. No acute osseous changes are identified. Impression: No evidence of acute intracranial abnormality CT DOSING PQRS STATEMENT: One or more of the following individualized dose reduction techniques were utilized for this examinat ion: 1. Automated exposure control 2. Adjustment of the mA and/or kV according to patient size 3. Use of iterative reconstruction technique Electronically signed by: Randy Sosa MD (04/06/2021 12:35 PM) [id number]
--- NOTE | 2021-04-06 13:24 | ED.ADGEN ---
Past Medical History Past Medical History: Anxiety, Asthma, Migraines, Other Additional Past Medical Histor: CHRONIC RIGHT KNEE PAIN R/T FALLS Past Surgical History: Other Additional Past Surgical Histo: titanium plate in right FA, bilat eye surgery "lazy eye" Smoking Status: Never Smoker Alcohol Use: Occasionally Drug Use: None General Adult EDM: Chief Complaint: HEADACHE HPI: HPI: Patient is a 31-year-old male with past medical history of migraines and head injuries who presents to the emergency room complaining of a left sided migraine behind the eye that radiates into the occipital lobe. He states this is typically where he gets his headaches. He states it has been constant since Tuesday. He states his headaches have been getting worse over the last year. He does not have insurance does not been able to follow-up with the neurologist. He does not take anything for his migraines every day. He tried to take sumatriptan and Excedrin Migraine to help with his headache. He states that the Excedrin did not help at all and his migraine medicine started to help but then the headache came back. He states he did not have any more. He tried to go to work today but had lightheadedness with nausea and a severe headache so he came to the emergency room. Review of Systems: Review of Systems: Complete ROS is negative unless otherwise documented in HPI Current Medications: Current Medications Medications (Trade) Dose Ordered Sig/Paul Start Time Stop Time Status Last Admin Dose Admin Dexamethasone Sodium Phosphate (Decadron) 10 mg 1X ONCE 04/06/21 12:15 04/06/21 12:16 DC 04/06/21 12:53 10 MG Diphenhydramine HCl (Benadryl) 25 mg 1X ONCE 04/06/21 12:15 04/06/21 12:16 DC 04/06/21 12:52 25 MG Lorazepam (Ativan) 0.5 mg 1X ONCE 04/06/21 14:15 04/06/21 14:16 DC 04/06/21 14:17 0.5 MG Prochlorperazine Edisylate (Compazine) 10 mg 1X ONCE 04/06/21 12:15 04/06/21 12:16 DC 04/06/21 12:56 10 MG Sodium Chloride 1,000 ml @ 0 mls/hr Q0M ONCE 04/06/21 12:15 04/06/21 12:16 DC 04/06/21 12:45 999 MLS/HR Allergies: Allergies: Allergies Coded Allergies Type Severity Reaction Last Updated Verified ketorolac Adverse Reaction Mild Anxiety 09/08/19 Yes Physical Exam: PE: General: Awake, alert, NAD. Well Nourished, well hydrated. Cooperative HEENT: Atraumatic, EOMI, PERRL, airway patent, moist oral mucosa Neck: Supple, trachea midline Respiratory: CTA bilaterally, normal effort, no wheezing/crackles CV: RRR, no murmur, cap refill <2 GI: Soft, nondistended, nontender, no masses MSK: No obvious deformities Skin: Warm, dry, intact Neuro: A&O x3, speech NL, 5/5 strength in BUE/BLE distally and proximally, CN 2- 12 intact, cerebellar testing normal Psych: Normal affect, normal mood, not suicidal or homicidal Current Patient Data: Vital Signs: Vital Signs Date Time Temp Pulse Resp B/P (MAP) Pulse Ox O2 Delivery O2 Flow Rate FiO2 04/06/21 11:23 98.4 56 16 102/67 (79) 97 Room Air 98.4 EKG: EKG: [] Heart Score: C/O Chest Pain: N/A Risk Factors: Risk Factors: DM, Current or recent (<one month) smoker, HTN, HLP, family history of CAD, obesity. Risk Scores: Score 0 - 3: 2.5% MACE over next 6 weeks - Discharge Home Score 4 - 6: 20.3% MACE over next 6 weeks - Admit for Clinical Observation Score 7 - 10: 72.7% MACE over next 6 weeks - Early Invasive Strategies Radiology/Procedures: Radiology/Procedures: [] Course & Med Decision Making: Course & Med Decision Making Pertinent Labs and Imaging studies reviewed. (See chart for details) Patient is a 31yo male who presents to the emergency room complaining of a migraine. Patient has a history of migraines and this is typical of her normal migraine. Patient did not have sudden onset of severe headache that would be concerning for subarachnoid hemorrhage. Patient does not have any neurologic deficits on exam. Patient will be given a migraine cocktail. On reevaluation, patient is feeling significantly better but does have some anxiety after the Compazine. Patient did receive the Benadryl with the Compazine, however he continues to have restlessness. We will give him a single dose of Ativan. I did discuss going to [facility] which could help him with resources and primary care to help get on migraine prevention medication. We will provide him with his triptan and will also give him Reglan with directions to use that with Benadryl to try to help migraines at home. Patient's test results and vitals while in the ED were fully reviewed and discussed with the patient. Patient is stable and at this time does not need admission to the hospital. We have discuss ed strict return precautions and the importance of following up with their Primary Care Physician. Patient stated understanding and was given an opportunity to ask any questions. Patient is in agreement with plan. Dragon Disclaimer: Dragon Disclaimer: This electronic medical record was generated, in whole or in part, using a voice recognition dictation system. Departure Departure Impression: Primary Impression: Migraine Disposition: HOME / SELF CARE / HOMELESS Condition: STABLE Referrals: NO PCP (PCP) Patient Instructions: Migraine Headache Scripts Metoclopramide Hcl (REGLAN) 10 Mg Tablet 1 TAB PO TID PRN for migraine for 5 Days, #15 TAB 0 Refills Take with Benadryl 50mg for migraine Prov: NANDO GAMEZ MD 04/06/21 Sumatriptan Succinate (SUMATRIPTAN SUCCINATE) 100 Mg Tablet 1 TAB PO UD, #9 TAB 3 Refills Prov: NANDO GAMEZ MD 04/06/21 NANDO GAMEZ MD Apr 06, 2021 13:24
[2021-04-06] MEDS ORDERED: LORazepam 0.5 MG TABLET PO ONE (14:15)
[2021-04-06] MEDS ORDERED: METO10TA81 PO (14:19)
[2021-04-06] MEDS ORDERED: SUMA100T4 PO (14:19)
== END 2021-04-06 14:47 | disposition home or self-care (01) ==
LOC: ER 11:15
DX: G43.909 Migraine, unspecified, not intractable, without status migrainosus (principal); J45.909 Unspecified asthma, uncomplicated; F41.9 Anxiety disorder, unspecified; G89.29 Other chronic pain; Z88.8 Allergy status to other drugs, medicaments and biological substances
CPT/HCPCS: 70450; 96374; 96375; 99284; J0780; J1100; J7030; Q0163

== ENCOUNTER 2021-09-25 20:47 | Emergency (ER) | payer SELFPAY ==
[~2021-09-25] VITALS: Ht 177.8 cm; Wt 72.0 kg
[~2021-09-25 20:47] MED LIST changes: +METO10TA81 PO
[2021-09-25] MEDS ORDERED: METOCLOPRAMIDE HCL 10 MG/2 ML VIAL. IVP ONE (22:00)
[2021-09-25] MEDS ORDERED: IV NORMAL SALINE 1000ML BAG 1,000 ML IV ONE (22:00)
[2021-09-25] MEDS ORDERED: DEXAMETHASONE SOD PHOS 4 MG/ML VIAL IVP ONE (22:00)
[2021-09-25] MEDS ORDERED: diphenhydrAMINE 50 MG/ML VIAL IVP ONE (22:00)
[2021-09-25 22:09] LABS: BASO % 1 % (0-3); EOS # 0.4 x10^3/uL (0.0-0.7); EOS % 5 % (0-3); HEMATOCRIT 46.1 % (39.0-53.0); HEMOGLOBIN 15.5 g/dL (13.0-17.5); LYMPH # 2.7 x10^3/uL (1.0-4.8); LYMPH % 34 % (24-48); MEAN CORPUSCULAR HEMOGLOBIN 32 pg (25-35); MEAN CORPUSCULAR HGB CONC 34 g/dL (31-37); MEAN CORPUSCULAR VOLUME 94 fL (79-100); MONO # 0.7 x10^3/uL (0.0-1.1); MONO % 9 % (0-9); NEUT % 51 % (31-73); PLATELET COUNT 294 x10^3/uL (140-400); RED BLOOD COUNT 4.89 x10^6/uL (4.30-5.70); RED CELL DISTRIBUTION WIDTH 13.8 % (11.5-14.5); WHITE BLOOD COUNT 7.9 x10^3/uL (4.0-11.0)
[2021-09-25 22:19] LABS: CALCIUM 9.4 mg/dL (8.5-10.1); CREATININE 1.2 mg/dL (0.7-1.3); GFR 70.6; POTASSIUM 3.2 mmol/L (3.5-5.1)
[2021-09-25 22:24] LABS: ALBUMIN 3.9 g/dL (3.4-5.0); ALBUMIN/GLOBULIN RATIO 1.1 (1.0-1.7); MAGNESIUM 2.3 mg/dL (1.8-2.4); TOTAL BILIRUBIN 0.3 mg/dL (0.2-1.0); TOTAL PROTEIN 7.4 g/dL (6.4-8.2)
--- NOTE | 2021-09-25 22:42 | RAD ---
CT Head W/O Contrast: History: Reason: right sided headache, hx of TBI, right facial numbness / Spl. Instructions: / Histo ry: Comparison: April 06, 2021 Axial images were obtained without contrast. The woodson and white matter appears normal and symmetrical for the patients age. There is no mass effe ct, extraaxial fluid collections or hydrocephalus. There is no gross bleed. There is no focal loss of woodson-white matter distinction to suggest acute ischemia, i.e. stroke. Impression: No acute findings. RS Compliance Statement: One or more of the following individualized dose reduction techniques were utilized for this examinat ion: 1. Automated exposure control 2. Adjustment of the mA and/or kV according to patient size 3. Use of iterative reconstruction technique Electronically signed by: Torsten Duke III, MD (09/25/2021 10:40 PM) [facility]
--- NOTE | 2021-09-25 23:06 | PHYS DOC ---
Past Medical History Past Medical History: Anxiety, Asthma, Migraines, Other Additional Past Medical Histor: Brain injury in 2013, frontal lobe bleed, migraines Past Surgical History: No Surgical History Additional Past Surgical Histo: titanium plate in right FA, bilat eye surgery "lazy eye" Smoking Status: Never Smoker Alcohol Use: Occasionally Drug Use: None General Adult EDM: Chief Complaint: DIZZY/LIGHT HEADED HPI: HPI: Patient is a 31 year old male with history of brain injury with skull fracture and frontal lobe bleeding here for occipital headache starting today. Patient states he woke up feeling a small lump in the right occipital area with pressure like pain that radiates to the left occipital region. Patient reports associated pain behind his right eye and decreased sensation on the right side of his face. He also reports dizziness and lightheadedness with no specific triggers. He denies nausea and vomiting. He states he has been having intermittent headaches since his injury but his symptoms today are new. He has not followed up about his injury and neuro symptoms. Patient reports symptoms improves with Tylenol which he currently takes for a toothache. Review of Systems: Review of Systems: Constitutional: Denies fever or chills Eyes: Denies redness. Reports right eye pain HENT: Denies nasal congestion or sore throat Respiratory: Denies cough or shortness of breath Cardiovascular: Denies chest pain or palpitations GI: Denies abdominal pain, nausea, or vomiting : Denies dysuria or hematuria Musculoskeletal: Denies back pain or joint pain Integument: Denies rash or skin lesions Neurologic: Denies focal weakness. Reports dizziness/lightheadedness. Reports reduced sensation to the right face. Complete systems were reviewed and found to be within normal limits, except as documented in this note. Heart Score: C/O Chest Pain: N/A Current Medications: Current Medications Medications (Trade) Dose Ordered Sig/Paul Start Time Stop Time Status Last Admin Dose Admin Dexamethasone Sodium Phosphate (Decadron) 10 mg 1X ONCE 09/25/21 22:00 09/25/21 22:01 DC Diphenhydramine HCl (Benadryl) 25 mg 1X ONCE 09/25/21 22:00 09/25/21 22:01 DC Metoclopramide HCl (Reglan Vial) 10 mg 1X ONCE 09/25/21 22:00 09/25/21 22:01 DC Sodium Chloride 1,000 ml @ 1,000 mls/hr 1X ONCE 09/25/21 22:00 09/25/21 22:59 09/25/21 22:39 1,000 MLS/HR Allergies: Allergies: Allergies Coded Allergies Type Severity Reaction Last Updated Verified ketorolac Adverse Reaction Mild Anxiety 09/08/19 Yes Physical Exam: PE: Constitutional: Well developed, well nourished, no acute distress, non-toxic appearance HENT: Normocephalic, atraumatic Eyes: PERRL, EOMI, conjunctiva normal, no discharge Neck: Normal range of motion, no tenderness, supple Lungs & Thorax: No respiratory distress, equal chest rise and fall Abdomen: Soft, no tenderness Skin: Warm, dry, no erythema, no rash Back: No tenderness, no CVA tenderness Extremities: No tenderness, ROM intact, no edema Neurologic: Alert and oriented X 3, normal motor function. Reduced sensation to the right face, Strength is 5/5 in bilateral UE and LE. Normal gait. Psychologic: Affect normal, judgment normal Current Patient Data: Labs: Laboratory Tests Test 09/25/21 22:00 White Blood Count 7.9 x10^3/uL (4.0-11.0) Red Blood Count 4.89 x10^6/uL (4.30-5.70) Hemoglobin 15.5 g/dL (13.0-17.5) Hematocrit 46.1 % (39.0-53.0) Mean Corpuscular Volume 94 fL (79-100) Mean Corpuscular Hemoglobin 32 pg (25-35) Mean Corpuscular Hemoglobin Concent 34 g/dL (31-37) Red Cell Distribution Width 13.8 % (11.5-14.5) Platelet Count 294 x10^3/uL (140-400) Neutrophils (%) (Auto) 51 % (31-73) Lymphocytes (%) (Auto) 34 % (24-48) Monocytes (%) (Auto) 9 % (0-9) Eosinophils (%) (Auto) 5 % (0-3) H Basophils (%) (Auto) 1 % (0-3) Neutrophils # (Auto) 4.0 x10^3/uL (1.8-7.7) Lymphocytes # (Auto) 2.7 x10^3/uL (1.0-4.8) Monocytes # (Auto) 0.7 x10^3/uL (0.0-1.1) Eosinophils # (Auto) 0.4 x10^3/uL (0.0-0.7) Basophils # (Auto) 0.0 x10^3/uL (0.0-0.2) Sodium Level 141 mmol/L (136-145) Potassium Level 3.2 mmol/L (3.5-5.1) L Chloride Level 103 mmol/L (98-107) Carbon Dioxide Level 31 mmol/L (21-32) Anion Gap 7 (6-14) Blood Urea Nitrogen 7 mg/dL (8-26) L Creatinine 1.2 mg/dL (0.7-1.3) Estimated GFR (Cockcroft-Gault) 70.6 BUN/Creatinine Ratio 6 (6-20) Glucose Level 92 mg/dL (70-99) Calcium Level 9.4 mg/dL (8.5-10.1) Magnesium Level 2.3 mg/dL (1.8-2.4) Total Bilirubin 0.3 mg/dL (0.2-1.0) Aspartate Amino Transferase (AST) 28 U/L (15-37) Alanine Aminotransferase (ALT) 70 U/L (16-63) H Alkaline Phosphatase 61 U/L (46-116) Total Protein 7.4 g/dL (6.4-8.2) Albumin 3.9 g/dL (3.4-5.0) Albumin/Globulin Ratio 1.1 (1.0-1.7) Laboratory Tests 09/25/21 22:00 Laboratory Tests 09/25/21 22:00 Vital Signs: Vital Signs Date Time Temp Pulse Resp B/P (MAP) Pulse Ox O2 Delivery O2 Flow Rate FiO2 09/25/21 21:16 98.0 80 20 128/89 (102) 99 Room Air 98.0 EKG: EKG: @2156 NSR at 65 QRS 86 QT [address] elevations. Non continuous artifact at V4-6 with incomplete RBBB Radiology/Procedures: Radiology/Procedures: CT Head W/O Contrast: History: Reason: right sided headache, hx of TBI, right facial numbness / Spl. Instructions: / History: Comparison: April 06, 2021 Axial images were obtained without contrast. The woodson and white matter appears normal and symmetrical for the patients age. There is no mass effect, extraaxial fluid collections or hydrocephalus. There is no gross bleed. There is no focal loss of woodson-white matter distinction to suggest acute ischemia, i.e. stroke. Impression: No acute findings. PQRS Compliance Statement: One or more of the following individualized dose reduction techniques were utilized for this examination: 1. Automated exposure control 2. Adjustment of the mA and/or kV according to patient size 3. Use of iterative reconstruction technique Electronically signed by: Torsten Duke III, MD (09/25/2021 10:40 PM) [facility] Course & Med Decision Making: Course & Med Decision Making Pertinent Labs and Imaging studies reviewed. (See chart for details) 31 year old male with history of brain injury in 2012 here for occipital headache/pressure with reduced sensation on the right side of the face starting today. He is also complaining of small lump in the right mastoid region. Lump is not consistent with cyst and is not edematous. Advised patient to observe the lump and to seek medical care if it enlarges or becomes symptomatic.Neuro exam is unremarkable except for reduced sensation to the right face which appears to be a subjective finding. CT imaging shows no acute changes. EKG findings are unremarkable. Planned to give patient migraine cocktail but refused. Patient g iven IV fluids vitals are stable in ED. Patient's symptoms appear consistent with atypical migraine. Patient's symptoms improves with over the counter NSAIDs. Patient stable for discharge with outpatient follow-up with neurologist. Discussed findings and plan with patient, who acknowledges understanding and agreement. Dante Disclaimer: Dante Disclaimer: This electronic medical record was generated, in whole or in part, using a voice recognition dictation system. Departure Departure Impression: Primary Impression: Pressure in head Additional Impressions: Dizziness Hypokalemia Disposition: 01 HOME / SELF CARE / HOMELESS Condition: STABLE Referrals: NO PCP (PCP) EFRA AWAN MD Patient Instructions: Dizziness, [id number], Migraine Headache, [id number] Additional Instructions: Increase fluid hydration. May use [id number] Tylenol as needed for pain. NATHALIA DUNN DO Sep 25, 2021 23:06
[2021-09-25 23:25] VITALS: BP 114/71
[2021-09-25] MEDS: POTASSIUM CHLORIDE 20 MEQ TABLET.ER. PO ONE (23:30)
[2021-09-26] MEDS: POTASSIUM CHLORIDE 20 MEQ TABLET.ER. PO ONE
[2021-09-26] MEDS ORDERED: POTASSIUM BICARB 20 MEQ EFFERVESCENT TABLET. PO ONE (00:30)
--- NOTE | 2021-09-27 08:09 | EKG ---
[facility] [address] [place] [address] Test Date: 2021-09-25 Test Time: 21:53:18 Pat Name: EFRA SEQUEIRA Department: Room: Gender: M Educational Interpreter: : 1990 Requested By: NATHALIA DUNN Order Number: [id number] Reading MD: Measurements Intervals [place] Rate: 63 P: 53 CO: 142 QRS: 27 QRSD: 96 T: 36 QT: 384 QTc: 396 Interpretive Statements SINUS RHYTHM LEFT ATRIAL ABNORMALITY INCOMPLETE RIGHT BUNDLE BRANCH BLOCK ABNORMAL ECG RI6.02 No previous ECG available for comparison
== END 2021-09-26 00:23 | disposition home or self-care (01) ==
LOC: ER 20:47
DX: G43.909 Migraine, unspecified, not intractable, without status migrainosus (principal); E87.6 Hypokalemia; R42 Dizziness and giddiness; F41.9 Anxiety disorder, unspecified; J45.909 Unspecified asthma, uncomplicated; Z88.8 Allergy status to other drugs, medicaments and biological substances
CPT/HCPCS: 36415; 70450; 80053; 83735; 85025; 93005; 96360; 99285; J7030

== ENCOUNTER 2022-01-31 10:39 | Emergency (ER) | payer SELFPAY ==
[~2022-01-31] VITALS: Ht 180.3 cm; Wt 72.9 kg
[2022-01-31] MEDS ORDERED: DEXAMETHASONE SOD PHOS 4 MG/ML VIAL IVP ONE (11:00)
[2022-01-31] MEDS ORDERED: diphenhydrAMINE 50 MG/ML VIAL IVP ONE (11:00)
[2022-01-31] MEDS ORDERED: SUMAtriptan SUCC 6 MG/0.5 ML VIAL. SQ ONE (11:00)
[2022-01-31] MEDS ORDERED: PROCHLORPERAZINE 10 MG/2 ML VIAL. IV ONE (11:00)
--- NOTE | 2022-01-31 11:13 | PHYS DOC ---
Past Medical History Past Medical History: Anxiety, Asthma, Migraines, Other Additional Past Medical Histor: Brain injury in 2013, frontal lobe bleed, migraines Past Surgical History: Other Additional Past Surgical Histo: titanium plate in right FA, bilat eye surgery "lazy eye" Smoking Status: Never Smoker Alcohol Use: Occasionally Drug Use: None General Adult EDM: Chief Complaint: HEADACHE HPI: HPI: Patient is a 32 year old male who presents with migraine headache that is worse than usual. Is been going on for the last 3 days. He states they do not usually last for 3 days. States has been taking Excedrin Migraine and Benadryl but is not helping. He states he tried to take Benadryl earlier today but he vomited back up. He states he also does not usually vomit with his migraine headaches. States headache is in the frontal area of his head, light sensitivity, vomiting. Patient does not currently have a neurologist. But he does have a primary care provider. He states what helped him in the past was Rhonda but he does not have any. He denies hitting his head and injury to his head, vision loss, abdominal pain, back pain, fever, neck pain or stiffness, urinary symptoms, dizziness, syncope, numbness or tingling or focal weakness. Rates his pain a 9 out of 10. History of migraine, lazy eye, SI, 2013 brain injury with a frontal lobe brain bleed, asthma, anxiety, titanium plate in his right forearm. Review of Systems: Review of Systems: Constitutional: Denies fever or chills. [] Eyes: Denies change in visual acuity. +Light sensitive[] HENT: Denies nasal congestion or sore throat. [] Respiratory: Denies cough or shortness of breath. [] Cardiovascular: Denies chest pain or edema. [] GI: Denies abdominal pain, +nausea, +vomiting, denies bloody stools or diarrhea. [] : Denies dysuria. [] Musculoskeletal: Denies back pain or joint pain. [] Integument: Denies rash. [] Neurologic: + headache, denies focal weakness or sensory changes. [] Endocrine: Denies polyuria or polydipsia. [] Lymphatic: Denies swollen glands. [] Psychiatric: Denies depression or anxiety. [] Heart Score: C/O Chest Pain: No Current Medications: Current Medications Medications (Trade) Dose Ordered Sig/Paul Start Time Stop Time Status Last Admin Dose Admin Dexamethasone Sodium Phosphate (Decadron) 10 mg 1X ONCE 01/31/22 11:00 01/31/22 11:01 DC Diphenhydramine HCl (Benadryl) 25 mg 1X ONCE 01/31/22 11:00 01/31/22 11:01 DC Prochlorperazine Edisylate (Compazine) 10 mg 1X ONCE 01/31/22 11:00 01/31/22 11:01 DC Sumatriptan Succinate (Imitrex) 6 mg 1X ONCE 01/31/22 11:00 01/31/22 11:01 DC Allergies: Allergies: Allergies Coded Allergies Type Severity Reaction Last Updated Verified ketorolac Adverse Reaction Mild Anxiety 09/08/19 Yes Physical Exam: PE: Constitutional: Well developed, well nourished, no acute distress, non-toxic appearance. [] HENT: Normocephalic, atraumatic, bilateral external ears normal, oropharynx moist, no oral exudates, nose normal. [] Eyes: PERRLA, EOMI, conjunctiva normal, no discharge. Light sensitive[] Neck: Normal range of motion, no tenderness, supple, no stridor. [] Cardiovascular:Heart rate regular rhythm, no murmur [] Lungs & Thorax: Bilateral breath sounds clear to auscultation [] Abdomen: Bowel sounds normal, soft, no tenderness, no masses, no pulsatile masses. [] Skin: Warm, dry, no erythema, no rash. [] Back: No tenderness, no CVA tenderness. [] Extremities: No tenderness, no cyanosis, no clubbing, ROM intact, no edema. [] Neurologic: Alert and oriented X 3, normal motor function, normal sensory function, no focal deficits noted. [] Psychologic: Affect normal, judgement normal, mood normal. [] Current Patient Data: Vital Signs: Vital Signs Date Time Temp Pulse Resp B/P (MAP) Pulse Ox O2 Delivery O2 Flow Rate FiO2 01/31/22 10:42 97.5 75 16 114/75 (88) 98 Room Air 97.5 EKG: EKG: [] Radiology/Procedures: Radiology/Procedures: [] Impression: [facility] [address] [place] [address] IMAGING REPORT Signed PATIENT: EFRA SEQUEIRA LACCOUNT: [id number] : 1990 LOCATION: ER AGE: 32 SEX: M EXAM STATUS: PRE ER ORD. PHYSICIAN: MAYRA COSME APRN REASON: WORSENING MIGRAINE PROCEDURE: CT HEAD WO CONTRAST CT head without contrast dated 01/31/2022 11:22 AM Comparison: 09/25/2021 CLINICAL INDICATION: Worsening headache TECHNIQUE: Contiguous axial imaging of the head was performed from skull base to vertex. One or more of the following individualized dose reduction techniques were utilized for this examination: 1. Automated exposure control 2. Adjustment of the mA and/or kV according to patient size 3. Use of iterative reconstruction technique. FINDINGS: Ventricles and sulci are within normal limits for age. No midline shift or mass effect. Brain parenchyma is of normal attenuation. No hemorrhage or extra-axial collection. Posterior fossa and brainstem unremarkable. Mild mucosal thickening of the ethmoid air cells. The visualized paranasal sinuses and mastoid air cells are otherwise clear. No apparent calvarial abnormality. IMPRESSION: 1. No evidence of acute intracranial hemorrhage or mass. 2. Mild sinus disease. Electronically signed by: Brian Villalba MD (01/31/2022 11:23 AM) [id number] DICTATED and SIGNED BY: BRIAN VILLALBA MD DATE: 01/31/221121 Course & Med Decision Making: Course & Med Decision Making Pertinent Labs and Imaging studies reviewed. (See chart for details) See HPI. Alert and oriented x4. Ambulatory steady gait. Speaks in full clear sentences. No vision loss. PERRLA. No nuchal rigidity. Afebrile. Vital signs are within normal limits. No signs of trauma. No focal weakness. Moving all extremities equally with equal strength and lock stitch channeler. No numbness or tingling. Skin pink warm and dry. Patient is given Compazine, Dexamethasone, Benadryl, NS bolus, Rhonda. After medications given patient states he is feeling much better and he is pain- free. Patient to follow-up with primary care provider and continue trying to get into see a neurologist. [] Dante Disclaimer: Dante Disclaimer: This electronic medical record was generated, in whole or in part, using a voice recognition dictation system. Departure Departure Impression: Primary Impression: Headache Qualified Codes: R51.9 - Headache, unspecified Disposition: HOME / SELF CARE / HOMELESS Condition: STABLE Referrals: NO PCP (PCP) Patient Instructions: Migraine Headache Additional Instructions: Follow-up with your primary care provider and try to get in with a neurologist. Drink plenty of fluids to stay hydrated. If any symptoms worsen you can return to emergency room. Scripts Sumatriptan Succinate (SUMATRIPTAN SUCCINATE) 100 Mg Tablet 1 TAB PO UD, #5 TAB Prov: MAYRA COSME APRN 01/31/22 MAYRA COSME APRN Jan 31, 2022 11:13
--- NOTE | 2022-01-31 11:25 | RAD ---
CT head without contrast dated 01/31/2022 11:22 AM Comparison: 09/25/2021 CLINICAL INDICATION: Worsening headache TECHNIQUE: Contiguous axial imaging of the head was performed from skull base to vertex. One or more of the following individualized dose reduction techniques were utilized for this examinat ion: 1. Automated exposure control 2. Adjustment of the mA and/or kV according to patient size 3. Use of iterative reconstruction technique. FINDINGS: Ventricles and sulci are within normal limits for age. No midline shift or mass effect. Brain parench yma is of normal attenuation. No hemorrhage or extra-axial collection. Posterior fossa and brainstem unremarkable. Mild mucosal thickening of the ethmoid air cells. The visualized paranasal sinuses and mastoid air ce lls are otherwise clear. No apparent calvarial abnormality. IMPRESSION: 1. No evidence of acute intracranial hemorrhage or mass. 2. Mild sinus disease. Electronically signed by: Brian Villalba MD (01/31/2022 11:23 AM) [id number]
[2022-01-31 12:43] VITALS: BP 137/65
[2022-01-31] MEDS ORDERED: SUMA100T4 PO (12:44)
== END 2022-01-31 12:44 | disposition home or self-care (01) ==
LOC: ER 10:39
DX: G43.909 Migraine, unspecified, not intractable, without status migrainosus (principal); F41.9 Anxiety disorder, unspecified; J45.909 Unspecified asthma, uncomplicated; Z88.8 Allergy status to other drugs, medicaments and biological substances
CPT/HCPCS: 70450; 96372; 96374; 96375; 99284; J0780; J1100; J1200; J3030